=== PATIENT | female | born 1950 | race American Indian/Alaskan Native ===

== ENCOUNTER 2022-09-20 13:16 | Emergency (ER) | payer MEDICARE, MEDICAID | END 2022-09-20 15:04 | disposition home or self-care (01) | LOC: JP.ED 13:16 | DX: U07.1 COVID-19 (principal); R45.851 Suicidal ideations; I10 Essential (primary) hypertension; J44.9 Chronic obstructive pulmonary disease, unspecified; Z87.891 Personal history of nicotine dependence; Z88.8 Allergy status to other drugs, medicaments and biological substances; Z91.048 Other nonmedicinal substance allergy status; Z91.040 Latex allergy status; Z79.899 Other long term (current) drug therapy | CPT/HCPCS: 99283; J1642 ==

== ENCOUNTER 2022-09-20 22:01 | Inpatient (IN) | payer MEDICARE, MEDICAID ==
[2022-09-20 23:07] LABS: ESTIMATED GFR 78 mL/min (>60)
[2022-09-20] MEDS ORDERED: REMDESIVIR 200 MG in Sodium Chloride 0.9% 250 ML IV ONE (23:30)
[2022-09-20] MEDS ORDERED: Dexamethasone 4 MG/ML SDV IVPUSH SCH (23:30)
[2022-09-20] MEDS ORDERED: LORazepam 2 MG/ML SDV IVPUSH ONE (23:44)
[2022-09-21] MEDS ORDERED: Acetaminophen 325 MG Tab PO PRN ×2 (00:35→01:04)
[2022-09-21] MEDS ORDERED: Magnesium Hydroxide 400 MG/5 ML Susp 30 ML Cup PO PRN (00:35)
[2022-09-21] MEDS ORDERED: Enoxaparin 40 MG/0.4 ML Syringe SUBCUT SCH (00:35)
[2022-09-21] MEDS ORDERED: Ondansetron 4 MG/2 ML SDV IV PRN (00:35)
[2022-09-21] MEDS ORDERED: Ondansetron 4 MG Tab.DIS PO PRN (00:35)
[2022-09-21] MEDS: LORazepam 2 MG/ML SDV IVPUSH PRN ×2 (00:51→17:53)
[2022-09-21] MEDS ORDERED: Dexamethasone 4 MG/ML SDV IVPUSH SCH (01:15)
[2022-09-21] MEDS ORDERED: Albuterol 90 MCG/6.7 GM Inhaler INH PRN (01:25)
[2022-09-21] MEDS ORDERED: POMALIDOMIDE 2 MG PO SCH (04:45)
[2022-09-21] MEDS: Pantoprazole 40 MG Tab.CR PO SCH (07:55)
[2022-09-21] MEDS: PARoxetine 20 MG Tab PO SCH (08:00)
[2022-09-21] MEDS: cefTRIAXone 1 GM in Sodium Chloride 0.9% 50 ML IV SCH (15:15)
[2022-09-21] MEDS: Doxycycline 100 MG in Sodium Chloride 0.9% 100 ML IV SCH (16:13)
[2022-09-21] MEDS: Melatonin 3 MG Tab PO SCH (20:42)
[2022-09-21] MEDS: Enoxaparin 40 MG/0.4 ML Syringe SUBCUT SCH (21:33)
[2022-09-21] MEDS: REMDESIVIR 100 MG in Sodium Chloride 0.9% 100 ML IV SCH (21:33)
[2022-09-22] MEDS: Dexamethasone 4 MG/ML SDV IVPUSH SCH (01:10)
[2022-09-22] MEDS: Doxycycline 100 MG in Sodium Chloride 0.9% 100 ML IV SCH ×2 (04:11→16:20)
[2022-09-22] MEDS: Pantoprazole 40 MG Tab.CR PO SCH (08:15)
[2022-09-22] MEDS: PARoxetine 20 MG Tab PO SCH (08:15)
[2022-09-22] MEDS: Benzonatate 100 MG Cap PO PRN (08:23)
[2022-09-22] MEDS: cefTRIAXone 1 GM in Sodium Chloride 0.9% 50 ML IV SCH (15:28)
[2022-09-22] MEDS: Melatonin 3 MG Tab PO SCH (20:04)
[2022-09-22] MEDS ORDERED: REMDESIVIR 100 MG in Sodium Chloride 0.9% 100 ML IV SCH (21:00)
[2022-09-22] MEDS: Enoxaparin 40 MG/0.4 ML Syringe SUBCUT SCH (21:18)
[2022-09-22] MEDS: REMDESIVIR 100 MG in Sodium Chloride 0.9% 100 ML IV SCH (21:18)
[2022-09-23] MEDS: Dexamethasone 4 MG/ML SDV IVPUSH SCH (01:22)
[2022-09-23] MEDS: Doxycycline 100 MG in Sodium Chloride 0.9% 100 ML IV SCH ×2 (03:31→16:23)
[2022-09-23] MEDS: Benzonatate 100 MG Cap PO PRN (08:22)
[2022-09-23] MEDS: PARoxetine 20 MG Tab PO SCH (08:22)
[2022-09-23] MEDS: Pantoprazole 40 MG Tab.CR PO SCH (08:22)
[2022-09-23] MEDS: cefTRIAXone 1 GM in Sodium Chloride 0.9% 50 ML IV SCH (15:19)
[2022-09-23] MEDS: Melatonin 3 MG Tab PO SCH (20:37)
[2022-09-23] MEDS: Enoxaparin 40 MG/0.4 ML Syringe SUBCUT SCH (22:31)
[2022-09-23] MEDS: REMDESIVIR 100 MG in Sodium Chloride 0.9% 100 ML IV SCH (22:33)
[2022-09-24] MEDS: Dexamethasone 4 MG/ML SDV IVPUSH SCH (01:02)
[2022-09-24] MEDS: Doxycycline 100 MG in Sodium Chloride 0.9% 100 ML IV SCH (04:55)
[2022-09-24] MEDS: PARoxetine 20 MG Tab PO SCH (08:50)
[2022-09-24] MEDS: Pantoprazole 40 MG Tab.CR PO SCH (08:51)
== END 2022-09-24 11:34 | disposition home or self-care (01) | DRG 177 ==
LOC: JP.ED 22:01 → JP.MS 09-21 00:31
PROVIDERS: ADMIT Hospitalist; ATTEND Hospitalist
PROC: 8E0ZXY6 Isolation (ICD-10-PCS; principal; 2022-09-21)
PROC: XW033E5 Introduction of Remdesivir Anti-infective into Peripheral Vein, Percutaneous Approach, New Technology Group 5 (ICD-10-PCS; 2022-09-21)
PROC: 3E0333Z Introduction of Anti-inflammatory into Peripheral Vein, Percutaneous Approach (ICD-10-PCS; 2022-09-21)
DX: U07.1 COVID-19 (principal); J96.01 Acute respiratory failure with hypoxia; D84.821 Immunodeficiency due to drugs; C90.02 Multiple myeloma in relapse; F41.0 Panic disorder [episodic paroxysmal anxiety]; F31.9 Bipolar disorder, unspecified; J44.9 Chronic obstructive pulmonary disease, unspecified; C90.00 Multiple myeloma not having achieved remission; Z91.040 Latex allergy status; Z88.8 Allergy status to other drugs, medicaments and biological substances; Z85.3 Personal history of malignant neoplasm of breast; Z79.899 Other long term (current) drug therapy
CPT/HCPCS: 36415; 71045; 71045-26; 80048; 80053; 80076; 82248; 82550; 82728; 83605; 83615; 84145; 85025; 85379; 85610; 85730; 86140; 87040; 87804; 87804-59; 97110-GP; 97140-GP; 97162-GP; 97165-GO; 97530-GP; 99222; 99232; 99238; 99284; A9270-GY; J0696; J1100; J1642; J1650; J2060; J3490; J7050

== ENCOUNTER 2023-03-27 16:41 | Emergency (ER) | payer MEDICARE, MEDICAID ==
[2023-03-27 18:05] LABS: BASOPHILS ABSOLUTE AUTO 0.03 K/uL (0.00-0.10); BASOPHILS PERCENT AUTO 0.6 % (0.1-1.3); EOSINOPHILS PERCENT AUTO 3.8 % (0.0-5.4); HEMATOCRIT 31.9 % (34.3-46.0); HEMOGLOBIN 9.9 g/dL (11.2-15.5); IMMATURE GRAN PERCENT AUTO 0.4 % (0.0-0.7); LYMPHOCYTES ABSOLUTE AUTO 0.83 K/uL (0.8-3.3); LYMPHOCYTES PERCENT AUTO 15.8 % (11.4-47.7); MEAN CORPUSCULAR VOLUME 83.7 fL (81.4-99.0); MONOCYTES ABSOLUTE AUTO 0.57 K/uL (0.20-0.90); MONOCYTES PERCENT AUTO 10.9 % (3.3-12.6); NEUTROPHILS ABSOLUTE AUTO 3.59 K/uL (1.0-7.6); NEUTROPHILS PERCENT AUTO 68.5 % (40.0-78.1); PLATELET COUNT,PLT 236 K/uL (130-375); RED BLOOD CELL COUNT 3.81 M/uL (3.77-5.24); WHITE BLOOD CELL COUNT,WBC 5.2 K/uL (3.2-11.0)
[2023-03-27 18:11] LABS: IMMATURE GRAN ABSOLUTE AUTO 0.02 K/uL (0.00-0.23)
[2023-03-27 18:18] LABS: APPEARANCE,URINE SLIGHTLY CLOUDY (CLEAR); BILIRUBIN,URINE NEGATIVE (NEGATIVE); COLOR,URINE RED (YELLOW); GLUCOSE,URINE NEGATIVE (NEGATIVE); KETONES,URINE TRACE mg/dL (NEGATIVE); LEUKOCYTE ESTERASE,URINE SMALL (NEGATIVE); NITRITE,URINE NEGATIVE (NEGATIVE); OCCULT BLOOD,URINE LARGE (NEGATIVE); PROTEIN,URINE >=300 mg/dL (NEGATIVE); UROBILINOGEN,URINE 0.2 EU/dL (0.2-1.0)
[2023-03-27 18:21] LABS: RBC,URINE SEMI-PACKED (0-5)
[2023-03-27 18:22] LABS: AMORPHOUS SEDIMENT,URINE NOT SEEN; BACTERIA,URINE MANY; EPITHELIAL CELLS,URINE FEW; MUCUS,URINE NOT SEEN
[2023-03-27 18:25] LABS: A/G RATIO 0.9 (1.2-2.2); ALANINE AMINOTRANSFERASE,ALT 18 U/L (12-78); ALKALINE PHOSPHATASE 88 U/L (46-116); ASPARTATE AMNIOTRANSFERASE,AST 32 U/L (15-37); BILIRUBIN TOTAL 0.6 mg/dL (0.2-1.0); BLOOD UREA NITROGEN,BUN 14 mg/dL (7-18); CALCIUM 9.4 mg/dL (8.5-10.1); CARBON DIOXIDE,CO2 21 mmol/L (21-32); CHLORIDE,CL 105 mmol/L (100-108); CREATININE 0.9 mg/dL (0.6-1.0); EST CRCL DRUG DOSING (CG) 48.07 mL/min; ESTIMATED GFR 68 mL/min (>60); GLUCOSE RANDOM 99 mg/dL (74-106); POTASSIUM,K 3.4 mmol/L (3.6-5.2); PROTEIN TOTAL,TP 6.3 g/dL (6.4-8.2); SODIUM,NA 139 mmol/L (140-148)
[2023-03-27 18:47] LABS: ANION GAP 16.4 mmol/L (5.0-14.0)
== END 2023-03-27 22:18 | disposition home or self-care (01) ==
LOC: JP.ED 16:41
DX: M79.89 Other specified soft tissue disorders (principal); C90.00 Multiple myeloma not having achieved remission; C50.919 Malignant neoplasm of unspecified site of unspecified female breast; D84.821 Immunodeficiency due to drugs; I10 Essential (primary) hypertension; J44.9 Chronic obstructive pulmonary disease, unspecified; D64.9 Anemia, unspecified; E88.09 Other disorders of plasma-protein metabolism, not elsewhere classified; R80.9 Proteinuria, unspecified; Z86.73 Personal history of transient ischemic attack (TIA), and cerebral infarction without residual deficits; Z86.16 Personal history of COVID-19; Z87.891 Personal history of nicotine dependence; Z91.048 Other nonmedicinal substance allergy status; Z88.8 Allergy status to other drugs, medicaments and biological substances; Z91.040 Latex allergy status; Z79.01 Long term (current) use of anticoagulants; Z79.899 Other long term (current) drug therapy
CPT/HCPCS: 36415; 71045; 71045-26; 71250; 74176; 80053; 81001; 84145; 85025; 93971-RT; 99284